=== PATIENT | female | born 1960 | race Caucasian/White ===

== ENCOUNTER → 2018-08-08 | Outpatient (CLI) | payer OTHER | LOC: FIMAGING 07:19 | PROVIDERS: ATTEND Radiology Diagnostic Radiology | DX: I83.91 Asymptomatic varicose veins of right lower extremity (principal) ==

== ENCOUNTER 2018-10-11 07:22 | Day surgery (SDC) | payer OTHER ==
[2018-10-11] MEDS ORDERED: MEPERIDINE 25 MG/ML SYR IVP PRN (07:47)
[2018-10-11] MEDS ORDERED: ceFAZolin 2 GM/DEXTROSE 100 ML IV ONE (07:47)
[2018-10-11] MEDS ORDERED: ONDANSETRON 4 MG/2 ML VIAL IVP ONE (07:47)
[2018-10-11] MEDS ORDERED: FLUMAZENIL 0.5 MG/5 ML MDV IVP PRN (07:47)
[2018-10-11] MEDS ORDERED: MIDAZOLAM 2 MG/2 ML VIAL IVP PRN (07:47)
[2018-10-11] MEDS ORDERED: NALOXONE HCL 0.4 MG/ML INJ IVP PRN (07:47)
[2018-10-11] MEDS ORDERED: fentaNYL 100 MCG/2 ML INJ IVP PRN (07:47)
[2018-10-11] MEDS ORDERED: NS 1,000 ML IV ONE (07:47)
[2018-10-11] MEDS ORDERED: LIDO/EPI 1% **for epidural** 30 ML SDV ONE (07:51)
[2018-10-11] MEDS ORDERED: SODIUM TETRADECYL SULFATE 3% 2 ML VIAL IV ONE (07:51)
[2018-10-11] MEDS ORDERED: NA BICARBONATE 50 MEQ/50 ML VIAL ONE (07:51)
--- NOTE | 2018-10-11 08:39 | PDPROPOC ---
Sedation Plan of Care Sedation Plan of Care: vital signs stable, mental status noted, patient educated of risks, benefits, alternatives, patient can tolerate sedation ASA Classification: ASA 1 Planned drugs: fentanyl, midazolam Mallampati Score: Class 1 Mallampati Reference Image: Patient passed 3-3-2 rule?: Yes
--- NOTE | 2018-10-11 08:41 | PDGENHP ---
History & Physical Chief Complaint: RLE VARICOSE VEINS History of Present Illness: LARGE ROPEY VARICOSE VEINS CAUSING PAIN AND SWELLING Pertinent Past, Social, Family History: NON SMOKER Relevant Physical Exam: LARGE ROPEY VARICOSE VEINS MAPPED OUT Cardiorespiratory Assessment: RRR, CTA
[2018-10-11] MEDS ORDERED: IBUPROFEN 200 MG TAB PO ONE ×2 (10:59→14:55)
[2018-10-11] MEDS ORDERED: ONDANSETRON DISINTEGRATING 4 MG TAB PO PRN (10:59)
[2018-10-11] MEDS ORDERED: ONDANSETRON 4 MG/2 ML VIAL IVP PRN (10:59)
[2018-10-11] MEDS ORDERED: NS 1,000 ML IV SCH (11:00)
--- NOTE | 2018-10-11 11:05 | PDRADPN ---
Radiology Procedure Note Date of Procedure: 10/11/18 Radiologist: Dariela Ireland Anesthesia: IV Sedation Pre-op Diagnosis: RLE varicose veins Post-op Diagnosis: same Indication: pain and swelling Procedure: laser ablation, phlebectomy, sclerotherapy Inf/Abcess present in the surg proc area at time of surgery?: No
[2018-10-11] MEDS: HYDROCODONE/APAP 5/325 TAB PO PRN ×2 (13:47→14:53)
[2018-10-11 15:09] VITALS: BP 94/59
== END 2018-10-11 16:36 | disposition home or self-care (01) ==
LOC: FIMAGING 07:22
PROVIDERS: ATTEND Radiology Diagnostic Radiology
DX: I83.811 Varicose veins of right lower extremity with pain (principal); I80.01 Phlebitis and thrombophlebitis of superficial vessels of right lower extremity
CPT/HCPCS: J0690; J2250; J2310; J3010

== ENCOUNTER → 2018-10-17 | Outpatient (CLI) | payer OTHER | LOC: FIMAGING 13:24 ==

== ENCOUNTER → 2018-12-08 | Outpatient (CLI) | payer OTHER | LOC: FIMAGING 16:18 | PROVIDERS: ATTEND Radiology Diagnostic Radiology | DX: I83.91 Asymptomatic varicose veins of right lower extremity (principal) ==